=== PATIENT | female | born 1990 | race Caucasian/White ===

== ENCOUNTER 2022-01-20 04:17 | Day surgery (SDC) | payer OTHER, BC ==
[2022-01-16 12:14] VITALS: BMI 29.0
[2022-01-20] MEDS ORDERED: METHYLENE BLUE 50 MG/10 ML AMPUL ONE (07:09)
[2022-01-20] MEDS ORDERED: PROPOFOL 20 ML ONE (07:58)
[2022-01-20] MEDS ORDERED: MIDAZOLAM HCL 2 MG/2 ML SINGLE DOSE VIAL ONE (07:58)
[2022-01-20] MEDS ORDERED: LIDOCAINE HCL/PF 2% SDV 5ML VIAL ONE ×2 (08:00→11:32)
[2022-01-20] MEDS ORDERED: GLYCOPYRROLATE 0.2 MG/1 ML VIAL ONE (08:00)
[2022-01-20] MEDS ORDERED: oxyCODONE HCL 5 MG TABLET PO PRN (08:03)
[2022-01-20] MEDS ORDERED: PROMETHAZINE HCL 25 MG/1 ML VIAL IVPUSH PRN (08:03)
[2022-01-20] MEDS ORDERED: ONDANSETRON 4 MG/2 ML VIAL IVPUSH PRN (08:03)
[2022-01-20] MEDS ORDERED: LACTATED RINGERS SOLUTION 1,000 ML IV SCH (08:15)
[2022-01-20] MEDS ORDERED: DEXAMETHASONE SOD PHOSPHATE 4 MG/1 ML VIAL ONE (08:45)
[2022-01-20] MEDS ORDERED: ceFAZolin SODIUM 1 GM VIAL ONE (08:58)
[2022-01-20] MEDS ORDERED: CLINDAMYCIN 600MG PREMIX IVPB 600 MG/50 ML BAG IVPB SCH (09:00)
[2022-01-20] MEDS ORDERED: ceFAZolin SODIUM 1 GM VIAL IVPB ONE (09:00)
[2022-01-20] MEDS ORDERED: CLINDAMYCIN PHOSPHATE 600 MG/4 ML VIAL ONE (12:23)
[2022-01-20] MEDS ORDERED: CLINDAMYCIN PHOSPHATE 600 MG/4 ML VIAL IVPB ONE (12:27)
[2022-01-20] MEDS ORDERED: ACETAMINOPHEN 1000 MG/100 ML BAG IVPB ONE (13:00)
[2022-01-20 15:39] VITALS: BP 118/76; PULSE 100; TEMP 97.8
== END 2022-01-20 16:40 | disposition home or self-care (01) ==
LOC: JASU-SURG 04:17
PROVIDERS: ATTEND Plastic Surgery
PROC: 0HBV0ZZ Excision of Bilateral Breast, Open Approach (ICD-10-PCS; principal; 2022-01-20 08:00)
DX: N62 Hypertrophy of breast (principal); M54.2 Cervicalgia; M25.512 Pain in left shoulder; M25.511 Pain in right shoulder; M54.89 Other dorsalgia
CPT/HCPCS: 81025; 88305-TC; 94760; Q9968